=== PATIENT | female | born 1990 | race African-American/Black ===

== ENCOUNTER 2016-11-01 22:31 | Emergency (ER) | payer MEDICAID ==
[~2016-11-01] VITALS: Ht 172.7 cm; Wt 53.6 kg
[~2016-11-01 22:31] MED LIST: FLUO20CA19 PO; MIRT15TA PO; NICO1PAT10 TD; ONDA4TAB7 PO
[2016-11-01 22:32] VITALS: BP 104/71
[2016-11-02] MEDS ORDERED: NAPROXEN 500 MG TABLET PO ONE
[2016-11-02] MEDS ORDERED: HYDROcodone/APAP 5/325 TABLET PO ONE
[2016-11-02] MEDS ORDERED: AMOXICILLIN 500 MG CAPSULE PO ONE
[2016-11-02] MEDS ORDERED: HYDROcodone/APAP 5/325 TABLET ONE (00:12)
== END 2016-11-02 00:41 | disposition home or self-care (01) ==
LOC: ED 23:59
DX: K02.9 Dental caries, unspecified (principal); K04.7 Periapical abscess without sinus; F12.10 Cannabis abuse, uncomplicated
CPT/HCPCS: 99283

== ENCOUNTER 2016-11-26 16:09 | Emergency (ER) | payer MEDICAID ==
[~2016-11-26] VITALS: Ht 172.7 cm; Wt 55.9 kg
[2016-11-26] MEDS ORDERED: SODIUM CHLORIDE 0.9% 1,000 ML IV ONE (16:20)
[2016-11-26] MEDS ORDERED: FAMOTIDINE 20 MG/2 ML IVP ONE (16:30)
[2016-11-26] MEDS ORDERED: SODIUM CHLORIDE 0.9% 1,000ML IVBOLUS ONE (16:30)
[2016-11-26] MEDS ORDERED: ONDANSETRON 2MG/ML, 2ML IVPush ONE (16:30)
[2016-11-26 16:47] LABS: ASPARTATE AMINO TRANSFERASE 17 U/L (15-37); BLOOD UREA NITROGEN 10 mg/dL (7-18)
[2016-11-26] MEDS ORDERED: FAMOTIDINE 20 MG/2 ML ONE (18:11)
[2016-11-26] MEDS ORDERED: ONDANSETRON 2MG/ML, 2ML ONE (18:11)
[2016-11-26 20:03] VITALS: BP 110/69
== END 2016-11-26 20:05 | disposition home or self-care (01) ==
LOC: ED 19:30
DX: A08.39 Other viral enteritis (principal)
CPT/HCPCS: 36415; 80053; 81003; 83690; 84703; 85025; 87324; 89055; 96361; 96374; 96375; 99284; J2405; J7030; S0028